=== PATIENT | female | born 1980 | race Two or more races ===

== ENCOUNTER 2024-01-26 15:44 | Emergency (ER) | payer MEDICAID, OTHER ==
[~2024-01-26] VITALS: Ht 160 cm; Wt 78.0 kg
[2024-01-26 16:06] LABS: Basophils # (auto) 0.1 10 ^3/uL (0-0.2); Basophils % (auto) 1.1 % (0.0-2.0); Eosinophils # (auto) 0 10 ^3/uL (0-0.8); Eosinophils % (auto) 0.2 % (0.0-7.0); Hemoglobin 10.1 g/dL (12.2-16.2); Lymphocytes # (auto) 1.7 10 ^3/uL (0.4-5.4); Lymphocytes % (auto) 23.1 % (10.0-50.0); Mean Corpuscular Hemoglobin 24.1 pg (28.0-32.0); Mean Corpuscular Hgb Conc. 31.4 g/dL (32.0-36.0); Mean Corpuscular Volume 76.7 fL (80.0-100.0); Monocytes # (auto) 0.3 10 ^3/uL (0-1.3); Neutrophils # (auto) 5.3 10 ^3/uL (1.6-8.6); Neutrophils % (auto) 71.6 % (37.0-80.0); Nucleated Red Blood Cells % 0.1 %; Red Blood Cells 4.18 10^6/uL (4.0-5.20); Red Cell Distribution Width 18.2 % (11.8-14.3); White Blood Cell 7.4 10^3/uL (4.4-10.8)
[2024-01-26] MEDS: DexAMETHasone SOD PHOS 10MG/1ML VIAL INJ IM ONE (16:16)
[2024-01-26] MEDS: ALPRAZolam 0.5 MG TAB PO ONE (16:17)
[2024-01-26] MEDS: ALBUTEROL SULF 2.5 MG/0.5ML(0.5%) NEB SOLN NEB ONE (16:24)
[2024-01-26] MEDS: IPRATROPIUM BROM 0.5 MG/2.5ML INH SOL NEB ONE (16:24)
[2024-01-26 16:25] LABS: Alanine Aminotransferase 24 U/L (7-40); Alkaline Phosphatase 48 U/L (46-116); Anion Gap 16 (5-15); Aspartate Aminotransferase 19 U/L (13-40); BUN/Creatinine Ratio 21.8 (10.0-20.0); Blood Urea Nitrogen 12 mg/dL (9-23); Calcium 9.5 mg/dL (8.7-10.4); Carbon Dioxide 14 mmol/L (20-30); Chloride 109 mmol/L (98-107); Glucose 124 mg/dL (74-106); Potassium 3.5 mmol/L (3.5-5.1); Sodium 139 mmol/L (136-145)
[2024-01-26 16:26] LABS: Bilirubin, Total 0.3 mg/dL (0.2-1.0); Total Protein 6.9 g/dL (5.7-8.2)
[2024-01-27] MEDS: QUEtiapine FUMARATE 100 MG TAB PO ONE (03:21)
[2024-01-27 08:18] VITALS: RESP 15; O2SAT 98
[2024-01-27 10:41] VITALS: BP 129/54; PULSE 89; RESP 16; TEMP 98.3; O2SAT 98
== END 2024-01-27 11:26 | disposition home or self-care (01) ==
LOC: EDBD 15:44 → ER 15:53
DX: J45.909 Unspecified asthma, uncomplicated (principal); R07.89 Other chest pain; E66.01 Morbid (severe) obesity due to excess calories; Z68.30 Body mass index [BMI] 30.0-30.9, adult
CPT/HCPCS: 36415; 71045; 80053; 80320; 84484; 85025; 85379; 93005; 94640; 96372; 99285; J1100; J7644

== ENCOUNTER 2024-02-28 11:15 | Inpatient (IN) | payer MEDICAID ==
[~2024-02-28] VITALS: Ht 162.6 cm; Wt 86.5 kg
[2024-02-28] MEDS: SODIUM CHLORIDE 0.9% 1,000 ML IV ONE ×3 (12:19→16:48)
[2024-02-28 12:20] VITALS: PULSE 87; RESP 18; O2SAT 100
[2024-02-28] MEDS: ONDANSETRON HCL 4 MG/2 ML VIAL IV ONE (12:25)
[2024-02-28] MEDS: VANCOMYCIN 1GM/200ML 200 ML IV ONE (12:26)
[2024-02-28 15:05] LABS: Basophils # (auto) 0.1 10 ^3/uL (0-0.2); Basophils % (auto) 1.2 % (0.0-2.0); Eosinophils # (auto) 0.3 10 ^3/uL (0-0.8); Eosinophils % (auto) 3.6 % (0.0-7.0); Neutrophils # (auto) 4.1 10 ^3/uL (1.6-8.6)
[2024-02-28 15:07] LABS: Hematocrit 27.1 % (36.0-46.0); Hemoglobin 8.4 g/dL (12.2-16.2); Lymphocytes % (auto) 28.4 % (10.0-50.0); Mean Corpuscular Hgb Conc. 31.1 g/dL (32.0-36.0); Mean Corpuscular Volume 77.1 fL (80.0-100.0); Monocytes # (auto) 0.5 10 ^3/uL (0-1.3); Monocytes % (auto) 7.8 % (0.0-12.0); Platelet Count (auto) 270 10^3/uL (140-450); Red Blood Cells 3.51 10^6/uL (4.0-5.20); Red Cell Distribution Width 18.3 % (11.8-14.3)
[2024-02-28 15:19] LABS: Alanine Aminotransferase 19 U/L (7-40); Albumin 3.7 g/dL (3.2-4.8); Alkaline Phosphatase 53 U/L (46-116); Anion Gap 5 (5-15); Aspartate Aminotransferase 22 U/L (13-40); BUN/Creatinine Ratio 11.1 (10.0-20.0); Bilirubin, Total 0.5 mg/dL (0.2-1.0); Blood Urea Nitrogen 8 mg/dL (9-23); Calcium 8.8 mg/dL (8.7-10.4); Carbon Dioxide 25 mmol/L (20-30); Chloride 110 mmol/L (98-107); Glucose 120 mg/dL (74-106); Potassium 3.5 mmol/L (3.5-5.1); Sodium 140 mmol/L (136-145); Total Protein 6.7 g/dL (5.7-8.2)
[2024-02-28] MEDS: IOHEXOL 300 MG/ML 100ML BOTTLE IJ ONE (17:37)
[2024-02-28 19:20] VITALS: PULSE 93; RESP 16; O2SAT 95
[2024-02-28] MEDS ORDERED: ONDANSETRON HCL 4 MG/2 ML VIAL IV PRN (19:30)
[2024-02-28 19:55] LABS: % Iron Saturation 6.7 % (15-50)
[2024-02-28 19:58] LABS: Basophils # (auto) 0.1 10 ^3/uL (0-0.2); Eosinophils # (auto) 0.2 10 ^3/uL (0-0.8); Hemoglobin 7.3 g/dL (12.2-16.2); Lymphocytes # (auto) 1.6 10 ^3/uL (0.4-5.4); Monocytes # (auto) 0.4 10 ^3/uL (0-1.3); Neutrophils # (auto) 3.3 10 ^3/uL (1.6-8.6); Platelet Count (auto) 239 10^3/uL (140-450)
[2024-02-28 20:00] LABS: Basophils % (auto) 1.1 % (0.0-2.0); Eosinophils % (auto) 3.5 % (0.0-7.0); Hematocrit 23.8 % (36.0-46.0); Lymphocytes % (auto) 28.9 % (10.0-50.0); Mean Corpuscular Hemoglobin 23.9 pg (28.0-32.0); Mean Corpuscular Hgb Conc. 30.6 g/dL (32.0-36.0); Mean Corpuscular Volume 78.1 fL (80.0-100.0); Monocytes % (auto) 7.7 % (0.0-12.0); Neutrophils % (auto) 58.8 % (37.0-80.0); Nucleated Red Blood Cells % 0.1 %; Red Blood Cells 3.05 10^6/uL (4.0-5.20); White Blood Cell 5.7 10^3/uL (4.4-10.8)
[2024-02-28] MEDS: CLINDAMYCIN 600MG IV 50 ML IV SCH (22:00)
[2024-02-28 23:26] VITALS: PULSE 80; RESP 16
[2024-02-29] MEDS: QUEtiapine FUMARATE 100 MG TAB PO SCH (01:50)
[2024-02-29 05:38] VITALS: BP 109/65; PULSE 76; RESP 19; TEMP 98.3; O2SAT 100
[2024-02-29 09:00] VITALS: BP 107/73; PULSE 74; RESP 20; TEMP 98.7; O2SAT 97
[2024-02-29 13:00] VITALS: BP 117/68; PULSE 74; RESP 18; TEMP 98.4; O2SAT 97
[2024-02-29] MEDS: HYDROcodone-ACET 5/325MG TAB PO PRN (15:10)
[2024-02-29 17:00] VITALS: BP 94/46; PULSE 82; RESP 18; TEMP 98.9; O2SAT 94
[2024-02-29] MEDS: IRON SUCROSE COMPLEX 100 ML IV SCH (17:04)
[2024-02-29] MEDS: ACETAMINOPHEN 325 MG TAB PO PRN (18:10)
[2024-02-29 20:00] VITALS: PULSE 65; RESP 16; O2SAT 97
[2024-02-29 21:00] VITALS: BP 107/64; PULSE 65; RESP 16; TEMP 97.7; O2SAT 97
[2024-02-29 22:19] LABS: Urine Bacteria None Seen /hpf (None Seen)
[2024-02-29 22:41] LABS: Urine Blood 3+ /uL (Negative); Urine Clarity Ex.Turbid (Clear); Urine Color Light-Red (Yellow); Urine Protein, UAD 1+ (Negative); Urine Specific Gravity 1.016 (1.001-1.035); Urine Urobilinogen Normal (Negative); Urine WBC 888 /hpf (0 - 5)
[2024-02-29 22:44] LABS: Amphetamine Screen, Urine Pos (NEGATIVE); Benzodiazephine Screen, Urine Neg (NEGATIVE)
[2024-02-29 22:45] LABS: Barbiturate Scree,Urine Neg (NEGATIVE); Cannabinoid Screen, Urine Neg (NEGATIVE); Cocaine Screen, Urine Neg (NEGATIVE); Opiate Scree,Urine Neg (NEGATIVE); Phencyclidine Screen, Urine Neg (NEGATIVE)
[2024-03-01 01:00] VITALS: BP 97/53; PULSE 98; RESP 16; TEMP 97.8; O2SAT 92
[2024-03-01 05:00] VITALS: BP 104/66; PULSE 68; RESP 16; TEMP 98.1; O2SAT 97
[2024-03-01 07:30] VITALS: O2SAT 97
[2024-03-01 09:00] VITALS: BP 138/75; PULSE 81; RESP 22; TEMP 98.3; O2SAT 100
[2024-03-01 10:40] LABS: Eosinophils # (auto) 0.3 10 ^3/uL (0-0.8); Eosinophils % (auto) 4.7 % (0.0-7.0); Lymphocytes # (auto) 1.4 10 ^3/uL (0.4-5.4); Lymphocytes % (auto) 24.9 % (10.0-50.0); Monocytes # (auto) 0.5 10 ^3/uL (0-1.3); Nucleated Red Blood Cells % 0.1 %; Red Cell Distribution Width 18.7 % (11.8-14.3)
[2024-03-01 10:41] LABS: Basophils # (auto) 0 10 ^3/uL (0-0.2); Basophils % (auto) 0.9 % (0.0-2.0); Hematocrit 27.5 % (36.0-46.0); Mean Corpuscular Hgb Conc. 29.2 g/dL (32.0-36.0); Mean Corpuscular Volume 82.1 fL (80.0-100.0); Neutrophils # (auto) 3.4 10 ^3/uL (1.6-8.6); Neutrophils % (auto) 60.5 % (37.0-80.0); Platelet Count (auto) 227 10^3/uL (140-450); Red Blood Cells 3.35 10^6/uL (4.0-5.20); White Blood Cell 5.6 10^3/uL (4.4-10.8)
[2024-03-01 10:53] LABS: Anion Gap 6 (5-15); Carbon Dioxide 23 mmol/L (20-30); Chloride 109 mmol/L (98-107); Sodium 138 mmol/L (136-145)
[2024-03-01 10:59] LABS: Glucose 122 mg/dL (74-106)
[2024-03-01 11:13] LABS: BUN/Creatinine Ratio 7.8 (10.0-20.0); Blood Urea Nitrogen < 5 mg/dL (9-23)
[2024-03-01 13:00] VITALS: BP_SYST 105; BP_SYST 114; BP_DIAS 61; BP_DIAS 67; PULSE 79; PULSE 95; RESP 18; RESP 22; TEMP 98; TEMP 98.6; O2SAT 98; O2SAT 99
[2024-03-01 21:00] VITALS: BP 128/50; PULSE 86; RESP 18; TEMP 98.4; O2SAT 96
[2024-03-02 01:00] VITALS: BP 125/47; PULSE 81; RESP 16; TEMP 98.2; O2SAT 96
[2024-03-02 05:00] VITALS: BP 141/74; PULSE 82; RESP 16; TEMP 97.9; O2SAT 97
[2024-03-02 08:00] VITALS: PULSE 71; RESP 17; O2SAT 98
[2024-03-02 08:55] VITALS: BP 146/67; PULSE 71; RESP 17; TEMP 98.3; O2SAT 98
[2024-03-02 09:05] LABS: Hepatitis B Surface Antigen Negative (Negative)
[2024-03-02 09:26] LABS: Hepatitis C Antibody Negative (Negative)
[2024-03-02 11:34] LABS: Basophils # (auto) 0.1 10 ^3/uL (0-0.2); Basophils % (auto) 1.1 % (0.0-2.0); Eosinophils # (auto) 0.2 10 ^3/uL (0-0.8); Eosinophils % (auto) 3.4 % (0.0-7.0); Hematocrit 28.1 % (36.0-46.0); Hemoglobin 8.7 g/dL (12.2-16.2); Lymphocytes # (auto) 1.3 10 ^3/uL (0.4-5.4); Lymphocytes % (auto) 21.2 % (10.0-50.0); Mean Corpuscular Hemoglobin 23.8 pg (28.0-32.0); Mean Corpuscular Hgb Conc. 31.1 g/dL (32.0-36.0); Mean Corpuscular Volume 76.6 fL (80.0-100.0); Monocytes # (auto) 0.4 10 ^3/uL (0-1.3); Monocytes % (auto) 5.9 % (0.0-12.0); Neutrophils # (auto) 4.2 10 ^3/uL (1.6-8.6); Neutrophils % (auto) 68.4 % (37.0-80.0); Nucleated Red Blood Cells % 0.1 %; Platelet Count (auto) 247 10^3/uL (140-450); Red Blood Cells 3.67 10^6/uL (4.0-5.20); Red Cell Distribution Width 18.2 % (11.8-14.3); White Blood Cell 6.2 10^3/uL (4.4-10.8)
[2024-03-02 11:51] LABS: Alanine Aminotransferase 15 U/L (7-40); Albumin 3.7 g/dL (3.2-4.8); Alkaline Phosphatase 49 U/L (46-116); Anion Gap 4 (5-15); Aspartate Aminotransferase 14 U/L (13-40); BUN/Creatinine Ratio 10.3 (10.0-20.0); Blood Urea Nitrogen 6 mg/dL (9-23); Calcium 8.9 mg/dL (8.7-10.4); Carbon Dioxide 27 mmol/L (20-30); Chloride 105 mmol/L (98-107); Glucose 139 mg/dL (74-106); Potassium 3.9 mmol/L (3.5-5.1); Sodium 136 mmol/L (136-145)
[2024-03-02 11:52] LABS: Bilirubin, Total 0.3 mg/dL (0.2-1.0); Total Protein 6.6 g/dL (5.7-8.2)
[2024-03-02] MEDS ORDERED: FER325T PO (12:21)
[2024-03-02] MEDS ORDERED: QUET100T47 PO (12:26)
[2024-03-02 12:30] VITALS: BP 150/83; PULSE 96; RESP 19; TEMP 98.7; O2SAT 100
[2024-03-02 16:47] VITALS: BP 147/69; PULSE 85; RESP 18; TEMP 98.2; O2SAT 98
== END 2024-03-02 19:07 | disposition home or self-care (01) | DRG 252 ==
LOC: ER 11:15 → EDBD 11:15 → EDSEX 11:15 → OVERFLOW 19:29 → EAST 22:31
PROVIDERS: ATTEND Internal Medicine Geriatric Medicine
DX: K94.02 Colostomy infection (principal); L03.311 Cellulitis of abdominal wall; R62.7 Adult failure to thrive; D50.0 Iron deficiency anemia secondary to blood loss (chronic); F32.A Depression, unspecified; J45.909 Unspecified asthma, uncomplicated; D25.9 Leiomyoma of uterus, unspecified; K80.20 Calculus of gallbladder without cholecystitis without obstruction; N80.03 Adenomyosis of the uterus; N83.202 Unspecified ovarian cyst, left side; N92.0 Excessive and frequent menstruation with regular cycle; Y83.8 Other surgical procedures as the cause of abnormal reaction of the patient, or of later complication, without mention of misadventure at the time of the procedure; L30.8 Other specified dermatitis; Z59.00 Homelessness unspecified; Z68.32 Body mass index [BMI] 32.0-32.9, adult
CPT/HCPCS: 36415; 74177; 76830; 76856; 80048; 80053; 80307; 81001; 83540; 83550; 85025; 86803; 87340; 96361; 96365; 96375; G0378; J1756; J2405; J3490

== ENCOUNTER 2024-03-02 23:19 | Emergency (ER) | payer MEDICAID ==
[~2024-03-02] VITALS: Ht 160 cm; Wt 85.0 kg
[~2024-03-02 23:19] MED LIST: FER325T PO; QUET100T47 PO
[2024-03-03 00:08] LABS: Basophils # (auto) 0.1 10 ^3/uL (0-0.2); Eosinophils # (auto) 0.3 10 ^3/uL (0-0.8); Neutrophils # (auto) 5.7 10 ^3/uL (1.6-8.6); White Blood Cell 8.3 10^3/uL (4.4-10.8)
[2024-03-03 00:10] LABS: Basophils % (auto) 0.7 % (0.0-2.0); Eosinophils % (auto) 3.5 % (0.0-7.0); Hematocrit 28.3 % (36.0-46.0); Hemoglobin 9.2 g/dL (12.2-16.2); Lymphocytes # (auto) 1.5 10 ^3/uL (0.4-5.4); Lymphocytes % (auto) 18.2 % (10.0-50.0); Mean Corpuscular Hemoglobin 24.8 pg (28.0-32.0); Mean Corpuscular Hgb Conc. 32.4 g/dL (32.0-36.0); Mean Corpuscular Volume 76.7 fL (80.0-100.0); Monocytes # (auto) 0.7 10 ^3/uL (0-1.3); Monocytes % (auto) 8.3 % (0.0-12.0); Neutrophils % (auto) 69.3 % (37.0-80.0); Platelet Count (auto) 268 10^3/uL (140-450); Red Blood Cells 3.69 10^6/uL (4.0-5.20)
[2024-03-03 00:25] LABS: Alanine Aminotransferase 16 U/L (7-40); Alkaline Phosphatase 55 U/L (46-116); Anion Gap 7 (5-15); Aspartate Aminotransferase 19 U/L (13-40); BUN/Creatinine Ratio 10.2 (10.0-20.0); Blood Alcohol < 3.0 mg/dL (<10); Blood Urea Nitrogen 6 mg/dL (9-23); Calcium 9.6 mg/dL (8.7-10.4); Carbon Dioxide 25 mmol/L (20-30); Chloride 104 mmol/L (98-107); Glucose 112 mg/dL (74-106); Potassium 3.7 mmol/L (3.5-5.1); Sodium 136 mmol/L (136-145)
[2024-03-03 00:26] LABS: Acetaminophen < 2.0 UG/ML (10.0-20.0)
[2024-03-03 00:27] LABS: Salicylate < 3.0 mg/dL (2.8-20.0)
[2024-03-03 00:28] LABS: Bilirubin, Total 0.4 mg/dL (0.2-1.0); Total Protein 7.3 g/dL (5.7-8.2)
[2024-03-03 00:30] VITALS: PULSE 90; RESP 16; O2SAT 98
[2024-03-03] MEDS: OLANZapine 5 MG TAB PO ONE (00:36)
[2024-03-03] MEDS: traZODone HCL 50 MG TAB PO ONE (00:36)
[2024-03-03] MEDS: QUEtiapine FUMARATE 100 MG TAB PO ONE (00:39)
[2024-03-03 07:53] VITALS: PULSE 90; RESP 16; O2SAT 98
[2024-03-03 08:33] LABS: Urine Bacteria None Seen /hpf (None Seen); Urine WBC None Seen /hpf (0 - 5)
[2024-03-03 08:46] LABS: Urine Blood 3+ /uL (Negative); Urine Clarity Ex.Turbid (Clear); Urine Color Light-Red (Yellow); Urine Protein, UAD 1+ (Negative); Urine Specific Gravity 1.015 (1.001-1.035); Urine Urobilinogen Normal (Negative)
[2024-03-03 09:06] LABS: Amphetamine Screen, Urine Neg (NEGATIVE); Barbiturate Scree,Urine Neg (NEGATIVE)
[2024-03-03 09:07] LABS: Benzodiazephine Screen, Urine Neg (NEGATIVE); Cannabinoid Screen, Urine Neg (NEGATIVE); Cocaine Screen, Urine Neg (NEGATIVE); Opiate Scree,Urine Neg (NEGATIVE); Phencyclidine Screen, Urine Neg (NEGATIVE)
[2024-03-03 14:52] VITALS: BP 110/76; PULSE 103; RESP 18; TEMP 98.2; O2SAT 100
== END 2024-03-03 15:11 | disposition short-term general hospital (02) ==
LOC: ER 23:19
DX: R45.851 Suicidal ideations (principal); D64.9 Anemia, unspecified; Z98.890 Other specified postprocedural states; Z59.00 Homelessness unspecified
CPT/HCPCS: 36415; 80053; 80307; 80320; 80329; 81001; 85025

== ENCOUNTER 2024-03-14 01:49 | Emergency (ER) | payer MEDICAID ==
[~2024-03-14] VITALS: Ht 165.1 cm; Wt 90.0 kg
[2024-03-14 03:21] LABS: Eosinophils # (auto) 0.1 10 ^3/uL (0-0.8); Hemoglobin 9.1 g/dL (12.2-16.2); Monocytes # (auto) 0.7 10 ^3/uL (0-1.3); Nucleated Red Blood Cells % 0.1 %
[2024-03-14 03:23] LABS: Basophils # (auto) 0 10 ^3/uL (0-0.2); Basophils % (auto) 0.3 % (0.0-2.0); Eosinophils % (auto) 2.2 % (0.0-7.0); Hematocrit 28.7 % (36.0-46.0); Lymphocytes # (auto) 2.5 10 ^3/uL (0.4-5.4); Lymphocytes % (auto) 43.2 % (10.0-50.0); Mean Corpuscular Hemoglobin 26.2 pg (28.0-32.0); Mean Corpuscular Hgb Conc. 31.7 g/dL (32.0-36.0); Mean Corpuscular Volume 82.7 fL (80.0-100.0); Monocytes % (auto) 11.2 % (0.0-12.0); Neutrophils # (auto) 2.5 10 ^3/uL (1.6-8.6); Neutrophils % (auto) 43.1 % (37.0-80.0); Platelet Count (auto) 537 10^3/uL (140-450); Red Blood Cells 3.47 10^6/uL (4.0-5.20); White Blood Cell 5.8 10^3/uL (4.4-10.8)
[2024-03-14 03:39] LABS: Alanine Aminotransferase 30 U/L (7-40); Albumin 4.5 g/dL (3.2-4.8); Alkaline Phosphatase 71 U/L (46-116); Anion Gap 10 (5-15); Aspartate Aminotransferase 29 U/L (13-40); BUN/Creatinine Ratio 15.6 (10.0-20.0); Blood Urea Nitrogen 12 mg/dL (9-23); Calcium 9.2 mg/dL (8.7-10.4); Carbon Dioxide 19 mmol/L (20-30); Chloride 109 mmol/L (98-107); Glucose 112 mg/dL (74-106); Potassium 3.8 mmol/L (3.5-5.1); Sodium 138 mmol/L (136-145)
[2024-03-14 03:40] LABS: Acetaminophen < 2.0 UG/ML (10.0-20.0); Bilirubin, Total 0.9 mg/dL (0.2-1.0); Salicylate < 3.0 mg/dL (2.8-20.0); Total Protein 8.2 g/dL (5.7-8.2)
[2024-03-14 03:59] LABS: Blood Alcohol 68.5 mg/dL (<10)
[2024-03-14] MEDS: LORazepam 2MG/ML-1ML VIAL IV ONE (08:49)
[2024-03-14 11:00] VITALS: BP 138/72; PULSE 99; RESP 14; TEMP 98.2; O2SAT 100
== END 2024-03-14 11:29 | disposition left against medical advice (07) ==
LOC: ER 01:49 → EDBD 01:49 → ER 11:29
DX: F19.959 Other psychoactive substance use, unspecified with psychoactive substance-induced psychotic disorder, unspecified (principal); R10.2 Pelvic and perineal pain; D50.9 Iron deficiency anemia, unspecified; F32.9 Major depressive disorder, single episode, unspecified; J45.909 Unspecified asthma, uncomplicated; Z59.00 Homelessness unspecified
CPT/HCPCS: 36415; 80053; 80320; 80329; 84702; 85025; 96374; 99283; J2060

== ENCOUNTER 2024-03-15 21:17 | Emergency (ER) | payer MEDICAID ==
[~2024-03-15] VITALS: Ht 160 cm; Wt 81.8 kg
[2024-03-15 21:31] VITALS: BP 114/68; PULSE 102; RESP 15; O2SAT 98
== END 2024-03-16 15:03 | disposition left against medical advice (07) ==
LOC: ER 21:17
DX: F32.9 Major depressive disorder, single episode, unspecified (principal); R45.850 Homicidal ideations; F15.10 Other stimulant abuse, uncomplicated; Z59.00 Homelessness unspecified